=== PATIENT | male | born 1990 | race Caucasian/White ===

== ENCOUNTER 2024-01-12 01:20 | Emergency (ER) | payer BC, MEDICAID ==
[~2024-01-12] VITALS: Ht 180.3 cm; Wt 75.0 kg
[2024-01-12 01:35] VITALS: TEMP 98.7; O2SAT 98
[2024-01-12] MEDS ORDERED: TETANUS, DIPHTHERIA, PERTUSSIS VAC/PF 0.5ML (>10YR OLD) IM ONE (01:45)
[2024-01-12] MEDS: LIDOCAINE HCL/PF 1% 10 MG/ML 5ML VIAL INFIL ONE ×2 (02:08)
[2024-01-12] MEDS: BACITRACIN ZINC OINT UDPKT TOP ONE (02:08)
[2024-01-12 03:01] VITALS: BP 138/85; PULSE 91; RESP 16
[2024-01-12] MEDS: HYDROCODONE/ACETAMINOPHEN 5/325MG TABLET PO ONE (03:01)
[2024-01-12] MEDS ORDERED: CEPH500C2 MT (03:58)
[2024-01-12] MEDS ORDERED: NAPR275T96 MT (03:58)
== END 2024-01-12 07:48 | disposition home or self-care (01) ==
LOC: ER 01:20
DX: S01.319A Laceration without foreign body of unspecified ear, initial encounter (principal); Y08.89XA Assault by other specified means, initial encounter; Y93.89 Activity, other specified; Y92.89 Other specified places as the place of occurrence of the external cause; Y99.8 Other external cause status
CPT/HCPCS: 70450; 70486; 72125; 12015; 99284; J3490; Z7610